=== PATIENT | female | born 1985 | race Caucasian/White ===

== ENCOUNTER 2021-03-25 06:14 | Inpatient (IN) ==
[2021-03-25] MEDS ORDERED: Ondansetron 4 MG/2 ML VIAL IVP PRN (06:15)
[2021-03-25] MEDS ORDERED: *HR* FentaNYL (PF) 100 MCG/2 ML VIAL IVP PRN (06:15)
[2021-03-25] MEDS ORDERED: Scopolamine Patch 1.5 MG PATCH.TD72 TD ONE (06:15)
[2021-03-25] MEDS ORDERED: Acetaminophen IV 1,000 MG/100 ML BAG IVPB ONE (06:15)
[2021-03-25] MEDS ORDERED: Famotidine 20 MG/2 ML VIAL IVP ONE (06:15)
[2021-03-25] MEDS ORDERED: *HR* OxyCODONE Immed Rel 5 MG TABLET PO PRN (06:15)
[2021-03-25] MEDS ORDERED: CeFAZolin Syr 2,000MG/20 ML 2,000 MG/20 ML SYRINGE IVPB ONE (06:38)
[2021-03-25] MEDS ORDERED: Ringers Solution, Lactated 1,000 ML IVC SCH (06:45)
[2021-03-25] MEDS ORDERED: *HR* Midazolam HCl 2 MG/2 ML VIAL ONE (07:00)
[2021-03-25] MEDS ORDERED: *HR* FentaNYL (PF) 100 MCG/2 ML VIAL ONE (07:00)
[2021-03-25] MEDS ORDERED: *HR* Propofol 200 MG/20 ML VIAL IVP ONE (07:00)
[2021-03-25] MEDS ORDERED: Lidocaine HCL 4 ML Topical Solution (Laryng-O-Jet Kit Sterile Pak) TP ONE (07:01)
[2021-03-25] MEDS ORDERED: Ondansetron 4 MG/2 ML VIAL ONE (07:01)
[2021-03-25] MEDS ORDERED: *HR* Rocuronium Bromide 50 MG/5 ML VIAL ONE ×2 (07:01→10:36)
[2021-03-25] MEDS ORDERED: Lidocaine -MPF 2% 2 ML VIAL ONE (07:01)
[2021-03-25] MEDS ORDERED: Dexmedetomidine HCl 400 MCG/100 ML MLS IVC ONE (07:21)
[2021-03-25] MEDS ORDERED: Isovue-300 50ML VIAL ONE (07:56)
[2021-03-25] MEDS ORDERED: *HR* HYDROMORPHONE 2 MG/ML VIAL ONE ×2 (09:06→10:23)
[2021-03-25] MEDS ORDERED: Sugammadex Sodium 200 MG/2 ML VIAL IV ONE (09:08)
[2021-03-25] MEDS ORDERED: ROPIVACAINE/PF/NS 0.25% 1 EACH SYRINGE INTRAART ONE (10:50)
[2021-03-25] MEDS: *HR* HYDROmorphone PF 0.5 MG/0.5 ML SYRINGE IVP PRN ×4 (11:25→11:55)
[2021-03-25] MEDS ORDERED: Naloxone 0.4 MG/ML INJ IVP PRN (12:30)
[2021-03-25] MEDS: *HR* OxyCODONE Immed Rel 5 MG TABLET PO PRN ×2 (12:53→18:53)
[2021-03-25] MEDS: 0.9 % Sodium Chloride 1,000 ML IVC SCH (13:01)
[2021-03-25 16:03] LABS: Basophils % 0.1 %; Hematocrit 41.4 % (35.3-44.9); Hemoglobin 14.3 g/dL (11.5-15.4); Immature Granulocytes % 0.3 % (0-4); Lymphocytes # 0.9 K/mcL (0.6-4.6); Lymphocytes % 7.5 %; Mean Corpuscular HGB Conc 34.5 g/dL (31.6-35.5); Mean Corpuscular Hemoglobin 31.6 pg (28.0-33.3); Mean Corpuscular Volume 91.4 fL (83.0-100.0); Mean Platelet Volume 8.8 fL (9.4-12.4); Monocytes # 0.6 K/mcL (0.0-1.3); Monocytes % 4.9 %; Neutrophils # 10.4 K/mcL (1.6-8.9); Platelet Count 263 K/mcL (140-400); Red Blood Count 4.53 M/mcL (3.82-4.97); Red Cell Distribution Width 11.6 % (11.5-14.5); Segmented Neutrophils % 87.2 %; White Blood Count 11.9 K/mcL (4.3-11.1)
[2021-03-25] MEDS ORDERED: *HR* OxyCODONE Immed Rel 5 MG TABLET PO ONE (16:22)
[2021-03-25] MEDS: Ibuprofen 600 MG TABLET PO SCH (16:40)
[2021-03-25 17:46] LABS: Magnesium 1.6 mg/dL (1.6-2.6); Phosphorous 3.5 mg/dL (2.7-4.5)
[2021-03-25] MEDS: Gabapentin 300 MG CAPSULE PO SCH (20:56)
[2021-03-26] MEDS: *HR* OxyCODONE Immed Rel 5 MG TABLET PO PRN ×2 (00:05→06:05)
[2021-03-26 03:06] LABS: Basophils % 0.1 %; Hematocrit 34.9 % (35.3-44.9); Hemoglobin 12.3 g/dL (11.5-15.4); Immature Granulocytes % 0.2 % (0-4); Lymphocytes # 2.4 K/mcL (0.6-4.6); Lymphocytes % 24.9 %; Mean Corpuscular HGB Conc 35.2 g/dL (31.6-35.5); Mean Corpuscular Hemoglobin 31.6 pg (28.0-33.3); Mean Corpuscular Volume 89.7 fL (83.0-100.0); Mean Platelet Volume 8.7 fL (9.4-12.4); Monocytes # 0.8 K/mcL (0.0-1.3); Monocytes % 7.8 %; Neutrophils # 6.4 K/mcL (1.6-8.9); Platelet Count 231 K/mcL (140-400); Red Blood Count 3.89 M/mcL (3.82-4.97); Red Cell Distribution Width 11.6 % (11.5-14.5); White Blood Count 9.6 K/mcL (4.3-11.1)
[2021-03-26] MEDS: Ibuprofen 600 MG TABLET PO SCH ×2 (03:17→14:27)
[2021-03-26 03:25] LABS: Magnesium 1.8 mg/dL (1.6-2.6); Phosphorous 3.2 mg/dL (2.7-4.5)
[2021-03-26] MEDS: 0.9 % Sodium Chloride 1,000 ML IVC SCH (04:00)
[2021-03-26] MEDS: Gabapentin 300 MG CAPSULE PO SCH ×3 (09:39→20:37)
[2021-03-26] MEDS: polyethylene glycoL 3350 17 GM POWD.PACK PO SCH (09:40)
[2021-03-26] MEDS: Morphine Sulfate Oral CONC 10 MG/0.5 ML ORAL.SYG SL PRN ×4 (10:32→22:48)
[2021-03-26] MEDS: D5% in 0.45% NACL w KCl 20 MEQ/1,000 ML MLS IVC SCH (12:37)
[2021-03-27] MEDS: D5% in 0.45% NACL w KCl 20 MEQ/1,000 ML MLS IVC SCH (02:08)
[2021-03-27] MEDS: Ibuprofen 600 MG TABLET PO SCH ×2 (03:02→15:27)
[2021-03-27] MEDS: Morphine Sulfate Oral CONC 10 MG/0.5 ML ORAL.SYG SL PRN ×4 (03:03→15:26)
[2021-03-27] MEDS ORDERED: *HR* Enoxaparin 40 MG/0.4 ML SYRINGE SQ SCH (07:00)
[2021-03-27 09:56] VITALS: TEMP 98.7
[2021-03-27] MEDS: polyethylene glycoL 3350 17 GM POWD.PACK PO SCH (10:16)
[2021-03-27] MEDS: Gabapentin 300 MG CAPSULE PO SCH ×2 (10:20→15:26)
[2021-03-27 14:02] VITALS: BP 100/68; PULSE 79; O2SAT 93
== END 2021-03-27 16:05 | disposition home or self-care (01) | DRG 231 ==
LOC: SAMDAY 06:14 → 3ANU 09:26
PROVIDERS: ADMIT Surgery; ATTEND Surgery